=== PATIENT | female | born 1985 | race African-American/Black ===

== ENCOUNTER 2017-01-01 20:11 | Emergency (ER) | payer OTHER ==
[~2017-01-01] VITALS: Ht 157.5 cm; Wt 92.5 kg
[~2017-01-01 20:11] MED LIST: NOHOMEMEDS; TORADOL10 MG PO
[2017-01-01 21:02] LABS: HEMATOCRIT 35.5 % (36.0-46.0); MCH 28.9 PG (29.0-34.0); MCHC 33.2 G/DL (30.0-36.0); MCV 86.8 FL (83-99); MEAN PLAT.VOLUME 9.4 uM^3 (9.5-12.4); PLATELET COUNT 254 K/uL (156-360); RBC DIS.WIDTH-CV 11.8 % (11.8-14.6); RBC DIS.WIDTH-SD 37.6 % (39-53); RED BLOOD COUNT 4.09 M/uL (3.80-5.20); WHITE BLOOD COUNT 4.9 K/uL (4.1-10.2)
[2017-01-01 21:12] LABS: CHLORIDE 109 mEq/L (99-109); POTASSIUM 3.7 mEq/L (3.7-5.4); SODIUM 141 mEq/L (136-147)
[2017-01-01 21:14] LABS: GLUCOSE 139 mg/dL (70-99)
[2017-01-01 21:15] LABS: ANION GAP 8 MEQ/L (2-14)
[2017-01-01 21:16] LABS: TOTAL BILIRUBIN 0.5 mg/dL (0.0-1.0)
[2017-01-01 21:17] LABS: ALKALINE PHOSPHATASE 77 IU/L (3-129)
[2017-01-01 21:18] LABS: GFR ESTIMATE (CALCULATED) > 59 mL/min/
[2017-01-01 21:19] LABS: UREA NITROGEN (BUN) 9 mg/dL (9-23)
[2017-01-01 21:21] LABS: LIPASE 23 U/L (1.0-51.0)
[2017-01-01 21:27] LABS: QUANTITATIVE HCG < 4.0 MIU/ML
[2017-01-01] MEDS ORDERED: CARAFATE1 GM PO (22:59)
[2017-01-01] MEDS ORDERED: OMEPRAZOLE40 M1 PO (22:59)
[2017-01-01] MEDS ORDERED: ULTRACET1 TABLET PO (23:05)
[2017-01-01 23:15] VITALS: BP 131/82
[2017-01-01 23:25] LABS: ADD MIUA? NO; BILIRUBIN NEGATIVE; BLOOD NEGATIVE; COLOR YELLOW ((YELLOW)); GLUCOSE (STRIP) NEGATIVE; KETONES NEGATIVE; LEUKOCYTES NEGATIVE; NITRITE NEGATIVE; PROTEIN (STRIP) NEGATIVE; UCUL ADDED? NO; UROBILINOGEN 0.2 MG/DL (0.2-1.0)
== END 2017-01-01 23:17 | disposition home or self-care (01) ==
LOC: EME 20:11 → EXP 20:11
PROVIDERS: Physician Assistant
DX: K29.70 Gastritis, unspecified, without bleeding (principal); M79.7 Fibromyalgia; F32.9 Major depressive disorder, single episode, unspecified
CPT/HCPCS: 71020; 71275; 74177; 80053; 81003; 83690; 84702; 85027; 85379; 93005; 99281; 99285; J7030